=== PATIENT | female | born 1945 | race Caucasian/White ===

== ENCOUNTER → 2018-08-31 | Outpatient (CLI) | payer OTHER ==
[~2018-08-31] MED LIST: ALBUTEROL0.09 MG/A2 IH; ANTIVERT/2525 MG PO; PHENERGAN25 M1 PO
== END | disposition home or self-care (01) ==
LOC: US 10:43
DX: N95.0 Postmenopausal bleeding (principal)

== ENCOUNTER 2020-09-03 16:09 | Emergency (ER) | payer OTHER ==
[2020-09-03] MEDS ORDERED: MEDROL DOSEPAK4 MG PO (16:45)
== END 2020-09-03 16:57 | disposition home or self-care (01) ==
LOC: ED 16:09
DX: L27.1 Localized skin eruption due to drugs and medicaments taken internally (principal); T50.995A Adverse effect of other drugs, medicaments and biological substances, initial encounter; Z88.8 Allergy status to other drugs, medicaments and biological substances; Y92.89 Other specified places as the place of occurrence of the external cause

== ENCOUNTER → 2022-08-20 | Outpatient (CLI) | payer OTHER ==
[~2022-08-20] MED LIST changes: +MEDROL DOSEPAK4 MG PO
== END ==
LOC: CARD 11:30
PROVIDERS: ATTEND Internal Medicine
DX: I07.1 Rheumatic tricuspid insufficiency (principal); I50.9 Heart failure, unspecified; I31.39 Other pericardial effusion (noninflammatory)

== ENCOUNTER 2023-09-23 15:38 | Emergency (ER) | payer OTHER ==
[~2023-09-23] VITALS: Ht 149.8 cm; Wt 81.6 kg
[2023-09-23] MEDS ORDERED: FLUCONAZOLE100 MG PO (18:13)
== END 2023-09-23 19:43 | disposition home or self-care (01) ==
LOC: ED 15:38
DX: B37.2 Candidiasis of skin and nail (principal); Z88.8 Allergy status to other drugs, medicaments and biological substances

== ENCOUNTER → 2024-06-01 | Outpatient (CLI) | payer OTHER ==
[~2024-06-01] MED LIST changes: +FLUCONAZOLE100 MG PO
== END | disposition home or self-care (01) ==
LOC: RAD 09:41
PROVIDERS: ATTEND Nurse Practitioner Family
DX: M79.671 Pain in right foot (principal)